=== PATIENT | male | born 1960 | race Caucasian/White ===

== ENCOUNTER 2018-04-09 16:21 | Inpatient (IN) | payer OTHER ==
[~2018-04-09] VITALS: Ht 182.8 cm; Wt 90.7 kg
--- NOTE | ~2018-04-09 | CON ---
[place], [place] REPORT OF CONSULTATION NAME: [id number] UNIT #: [id number] ROOM: 408 DOCTOR: POOJA BRAVO MD BIRTHDATE: [birth year] DOS: 04/10/2018 REASON FOR CONSULTATION: Chest tightness, abnormal electrocardiogram. HISTORY OF PRESENT ILLNESS: The patient is a 57-year-old man who has no previous history of heart disease. He does have a history of hypertension, but has been treating this with nutritional supplements thus far and is not on any prescribed medications. He states that he has had a stress test a few years ago and that it was normal. He denies any previous history of myocardial infarction or stroke. 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 While he was doing this on 04/09/2018, he began did note itchy welts on his arms. His hands were spared where he was wearing gloves. He thought that his throat felt tight and therefore, he came into the Emergency Room. He drank some soda and then developed a burning epigastric pain. In the Emergency Room, the patient's electrocardiogram did show peaked T waves in the anterior precordium. Serial troponin levels were normal. We were asked to evaluate him for the possibility that his discomforts could be related to coronary artery disease. His symptoms did recur this morning. We did get an electrocardiogram and an echocardiogram was also obtained while he was having throat symptoms. The electrocardiogram showed no acute changes and the echocardiogram showed normal wall motion during symptoms. PAST MEDICAL HISTORY: 1. Hypertension. 2. Gastroesophageal reflux disease. 3. History of B12 deficiency. 4. Status post repair of broken ankle. 5. History of repair of abdominal wall hernia. MEDICATIONS: Prior to admission, the patient takes no prescribed medicines as an outpatient. ALLERGIES: The patient has no known drug allergies. FAMILY HISTORY: Negative for early coronary artery disease. REVIEW OF SYSTEMS: The patient denies diplopia or loss of vision. He denies syncope. He has had the chest and epigastric tightness and pain noted above. He has had a skin rash, which probably represents an allergic reaction prior to admission. He denies nausea or vomiting. He denies fevers, chills, sweats or recent weight change. He denies hemoptysis or hematemesis. He denies change in bowel or bladder habits. He denies any blood in his stools or urine. He denies any polyuria, polydipsia, or heat or cold intolerance. He denies any peripheral edema. The remainder of the review of systems is negative except as noted above. SOCIAL HISTORY: The patient does drink alcohol on a daily basis. He also [place], [place] REPORT OF CONSULTATION NAME: JACQUELINE OTERO UNIT #: [id number] ROOM: 408 DOCTOR: POOJA BRAVO MD BIRTHDATE: [birth year] smokes. PHYSICAL EXAMINATION: GENERAL: The patient is a well-nourished white male, who is awake, alert and oriented. VITAL SIGNS: Pulse is 88 and regular, blood pressure 150/90. He is afebrile. He weighs 90.7 kg and has a body mass index of 27.1. HEENT: Normocephalic, atraumatic. Extraocular muscles are intact. Sclerae are clear. Pupils equal, round and react to light. The oral mucosa is moist. Tongue is midline. NECK: Supple. He has no jugular distention. Carotids are full. He has no bruits. He has no neck or supraclavicular masses, no thyromegaly. LUNGS: Respirations are unlabored. His chest is clear to auscultation and percussion. He has no presacral edema or chest wall tenderness. CARDIOVASCULAR: His heart has a regular rhythm and S4 gallop. There is no S3. The PMI is not displaced. There is no precordial heave, lift or thrill. I could not reproduce his pain by palpation of his chest. ABDOMEN: Soft and normally active without masses, organomegaly or bruits. EXTREMITIES: Showed no edema. Peripheral pulses are easily palpated bilaterally. LABORATORY DATA: I reviewed his electrocardiogram and showed sinus rhythm. There were nonspecific T-wave changes in the anterior leads, but no acute changes. I reviewed his echocardiogram briefly and saw no wall motion abnormalities, even though he was suffering his symptoms at that time. Hemoglobin is 15.9, hematocrit 45.1, white count 13,300, platelet count 277,000. Sodium 141, potassium 4.2, chloride 110, CO2 23, BUN 13, creatinine 0.96. Serial troponins have been normal. IMPRESSIONS: 1. Allergic reaction to some component of the hay that he was hauling. 2. Atypical chest discomfort with nonspecific T-wave abnormalities. 3. Hypertension, treated only with nutraceuticals. 4. History of tobacco abuse. PLAN: We will proceed with an exercise weller start an exercise myocardial perfusion study today. Further recommendations and evaluation will depend upon the results of his stress test. [facility] and I thank the hospitalist physicians for asking our advice regarding the patient's care. [place], [place] REPORT OF CONSULTATION NAME: JACQUELINE OTERO UNIT #: [id number] ROOM: [facility] DOCTOR: POOJA BRAVO MD BIRTHDATE: [birth year] POOJA BRAVO MD CM:CONSTR:REPORT OF CONSULTATION 1204 04/11/18 0710 interface
[2018-04-09 16:21] VITALS: BP 184/122
[~2018-04-09 16:21] MED LIST: B12100 MC1 PO; IBUPROFEN800 MG PO; LISINOPRIL10 M1 PO
[2018-04-09 16:25] VITALS: BP 170/108
[2018-04-09 16:48] LABS: BASO % 0.3 % (0.0-1.0); EOS # 0.1 10*3/uL (0.0-0.4); HEMATOCRIT 46.5 % (42.0-52.0); HEMOGLOBIN 16.7 g/dl (14.0-18.0); LYMPH % 18.5 % (27.0-41.0); MEAN CELL VOLUME 92.1 fl (80.0-94.0); MEAN CORPUSCULAR HGB 33.1 pg (27.0-31.0); MEAN CORPUSCULAR HGB CONC 35.9 g/dl (33.0-37.0); MEAN PLATELET VOLUME 9.7 fl (9.6-12.3); MONO # 0.5 10*3/uL (0.1-1.0); MONO % 4.5 % (3.0-9.0); NEUT # 8.2 10*3/uL (2.3-7.9); NEUT % 75.3 % (47.0-73.0); PLATELET COUNT AUTOMATED 260 10*3/uL (130-400); RED BLOOD COUNT 5.05 10*6/uL (4.50-5.90); RED CELL DISTRI WIDTH 11.9 % (0-14.5); WHITE BLOOD COUNT 10.9 10*3/uL (4.8-10.8)
[2018-04-09 17:04] LABS: ALBUMIN 4.5 gm/dl (3.1-4.5); ALKALINE PHOSPHATASE 78 U/L (45-117); BUN 12 mg/dl (7-24); CHLORIDE 107 mmol/L (98-107); CREATININE 0.89 mg/dL (0.70-1.30); POTASSIUM 3.9 mmol/L (3.5-5.1); SGOT/AST 11 IU/L (3-35); SGPT/ALT 32 U/L (12-78); SODIUM 141 mmol/L (136-145); TOTAL PROTEIN 8.2 gm/dL (6.4-8.2)
[2018-04-09 17:12] LABS: TROPONIN I < 0.015 ng/ml (<0.045)
[2018-04-09 17:24] VITALS: BP 131/88
[2018-04-09 17:37] LABS: ACT PARTIAL THROMBO TIME 23.3 SECONDS (20.8-31.5); INTERNATIONAL NORM RATIO 0.9 (2.0-3.5)
[2018-04-09 17:55] VITALS: BP 142/92
[2018-04-09 20:00] VITALS: BP 130/87
[2018-04-10] VITALS: BP 133/84
[2018-04-10 07:34] LABS: HEMATOCRIT 45.1 % (42.0-52.0); HEMOGLOBIN 15.9 g/dl (14.0-18.0); MEAN CELL VOLUME 93.6 fl (80.0-94.0); MEAN CORPUSCULAR HGB CONC 35.3 g/dl (33.0-37.0); MEAN PLATELET VOLUME 9.7 fl (9.6-12.3); PLATELET COUNT AUTOMATED 277 10*3/uL (130-400); RED BLOOD COUNT 4.82 10*6/uL (4.50-5.90); RED CELL DISTRI WIDTH 11.8 % (0-14.5); WHITE BLOOD COUNT 13.3 10*3/uL (4.8-10.8)
[2018-04-10 07:53] LABS: BASOPHILS 1 % (0-1); PLATELET SUFFICIENCY NORMAL (NORMAL); TOTAL CELLS COUNTED 100 #CELLS
[2018-04-10 07:54] LABS: INTERNATIONAL NORM RATIO 0.9 (2.0-3.5)
[2018-04-10 08:00] VITALS: BP 150/90
[2018-04-10 08:09] LABS: ALBUMIN 4.1 gm/dl (3.1-4.5); ALKALINE PHOSPHATASE 73 U/L (45-117); BUN 13 mg/dl (7-24); CHLORIDE 110 mmol/L (98-107); CHOLESTEROL 183 mg/dL (<200); CREATININE 0.96 mg/dL (0.70-1.30); HDL CHOLESTEROL 52 mg/dl (40-60); LDL CHOLESTEROL 114 mg/dL (9-159); POTASSIUM 4.2 mmol/L (3.5-5.1); SGOT/AST 8 IU/L (3-35); SGPT/ALT 32 U/L (12-78); SODIUM 141 mmol/L (136-145); TOTAL PROTEIN 7.8 gm/dL (6.4-8.2); TRIGLYCERIDES 85 mg/dl (<150); VLDL CHOLESTEROL 17 mg/dL (6-40)
[2018-04-10 08:15] LABS: THYROID STIM HORMONE (HS) 0.432 uIU/ml (0.358-4.75)
[2018-04-10 08:32] LABS: VITAMIN D, 25-HYDROXY 24.1 ng/mL (30-100)
[2018-04-10 12:00] VITALS: BP 127/71
[2018-04-10 16:00] VITALS: BP 130/90
[2018-04-10 20:00] VITALS: BP 124/76
[2018-04-11] VITALS: BP 111/73
[2018-04-11 08:00] VITALS: BP 125/88
[2018-04-11 08:56] LABS: HEMATOCRIT 43.5 % (42.0-52.0); HEMOGLOBIN 15.1 g/dl (14.0-18.0); MEAN CORPUSCULAR HGB 32.6 pg (27.0-31.0); MEAN CORPUSCULAR HGB CONC 34.7 g/dl (33.0-37.0); MEAN PLATELET VOLUME 9.9 fl (9.6-12.3); PLATELET COUNT AUTOMATED 269 10*3/uL (130-400); RED BLOOD COUNT 4.63 10*6/uL (4.50-5.90); WHITE BLOOD COUNT 20.1 10*3/uL (4.8-10.8)
[2018-04-11 09:15] LABS: PLATELET SUFFICIENCY NORMAL (NORMAL); TOTAL CELLS COUNTED 100 #CELLS
[2018-04-11 12:00] VITALS: BP 123/76
[2018-04-11] MEDS ORDERED: DIPHENHYDRAMINE25 M2 PO (15:07)
[2018-04-11] MEDS ORDERED: GOOD NEIGHBOR L10 MG PO (15:07)
[2018-04-11] MEDS ORDERED: PREDNISONE10 MG PO (15:28)
== END 2018-04-11 15:30 | disposition home or self-care (01) | DRG 916 ==
LOC: ED 16:21 → EDHOLD 17:34 → 4E 17:34
PROVIDERS: Internal Medicine; Nurse Practitioner
PROC: 3E073KZ Introduction of Other Diagnostic Substance into Coronary Artery, Percutaneous Approach (ICD-10-PCS; principal; 2018-04-10)
PROC: 4A02XM4 Measurement of Cardiac Total Activity, External Approach (ICD-10-PCS; principal; 2018-04-10)
DX: T78.40XA Allergy, unspecified, initial encounter (principal); R65.10 Systemic inflammatory response syndrome (SIRS) of non-infectious origin without acute organ dysfunction; Z91.14 Patient's other noncompliance with medication regimen; D72.829 Elevated white blood cell count, unspecified; I51.9 Heart disease, unspecified; J39.2 Other diseases of pharynx; R10.13 Epigastric pain; R73.9 Hyperglycemia, unspecified; I10 Essential (primary) hypertension; K21.9 Gastro-esophageal reflux disease without esophagitis; F10.10 Alcohol abuse, uncomplicated; E53.8 Deficiency of other specified B group vitamins; I16.0 Hypertensive urgency; E55.9 Vitamin D deficiency, unspecified; X58.XXXA Exposure to other specified factors, initial encounter; R07.9 Chest pain, unspecified; Z72.0 Tobacco use; Z71.6 Tobacco abuse counseling; Z80.1 Family history of malignant neoplasm of trachea, bronchus and lung; Z80.8 Family history of malignant neoplasm of other organs or systems

== ENCOUNTER 2020-03-17 10:59 | Observation (INO) | payer OTHER ==
[~2020-03-17] VITALS: Ht 182.9 cm; Wt 96.4 kg
[~2020-03-17 10:59] MED LIST changes: +DIPHENHYDRAMINE25 M2 PO; +GOOD NEIGHBOR L10 MG PO; +PREDNISONE10 MG PO
[2020-03-17 11:03] VITALS: BP 172/89
[2020-03-17 11:21] VITALS: BP 170/96
[2020-03-17 11:30] LABS: BASO % 0.5 % (0.0-1.0); EOS # 0.1 10*3/uL (0.0-0.4); EOS % 1.6 % (1.0-4.0); LYMPH # 1.5 10*3/uL (1.3-4.4); LYMPH % 19.7 % (27.0-41.0); MEAN CELL VOLUME 93.5 fl (80.0-94.0); MEAN CORPUSCULAR HGB 33.5 pg (27.0-31.0); MEAN CORPUSCULAR HGB CONC 35.8 g/dl (33.0-37.0); MEAN PLATELET VOLUME 9.7 fl (9.6-12.3); MONO # 0.7 10*3/uL (0.1-1.0); MONO % 8.8 % (3.0-9.0); NEUT # 5.2 10*3/uL (2.3-7.9); PLATELET COUNT AUTOMATED 251 10*3/uL (130-400); WHITE BLOOD COUNT 7.5 10*3/uL (4.8-10.8)
[2020-03-17 11:46] LABS: ALBUMIN 4.4 gm/dl (3.1-4.5); ALKALINE PHOSPHATASE 78 U/L (45-117); BUN 11 mg/dl (7-24); CHLORIDE 109 mmol/L (98-107); CREATININE 0.92 mg/dL (0.70-1.30); POTASSIUM 4.2 mmol/L (3.5-5.1); SGOT/AST 26 IU/L (3-35); SGPT/ALT 50 U/L (12-78); SODIUM 140 mmol/L (136-145); TOTAL PROTEIN 7.9 gm/dL (6.4-8.2)
[2020-03-17 11:47] LABS: TROPONIN I < 0.015 ng/ml (<0.045)
[2020-03-17 11:55] LABS: ACT PARTIAL THROMBO TIME 26.8 SECONDS (20.0-32.1)
[2020-03-17 12:05] VITALS: BP 142/92
[2020-03-17 13:02] VITALS: BP 156/97
[2020-03-17 13:15] VITALS: BP 147/96
[2020-03-17 16:00] VITALS: BP 138/85
== END 2020-03-17 18:19 | disposition home or self-care (01) ==
LOC: ED 10:59 → EDHOLD 12:34 → 5E 13:57
PROVIDERS: Emergency Medicine; ADMIT Internal Medicine
DX: R07.89 Other chest pain (principal); E87.8 Other disorders of electrolyte and fluid balance, not elsewhere classified; E83.41 Hypermagnesemia; I10 Essential (primary) hypertension; F17.210 Nicotine dependence, cigarettes, uncomplicated; K21.9 Gastro-esophageal reflux disease without esophagitis